=== PATIENT | female | born 1960 | race Caucasian/White ===

== ENCOUNTER → 2019-05-03 05:42 | Day surgery (SDC) | payer BC ==
--- NOTE | 2019-04-27 17:04 | HP ---
Amended report to enter cosigning physician. HISTORY AND PHYSICAL: DATE OF ADMISSION/SURGERY: 05/03/19 DATE OF OFFICE VISIT: 04/27/19 SURGEON: Meka Montiel MD* (dictated by MYLES Yen). PROCEDURE: Left knee arthroscopy with partial meniscectomy, possible chondroplasty, possible synovectomy, and possible plica excision. CHIEF COMPLAINT: Left knee pain. HISTORY OF PRESENT ILLNESS: Ms. Best is a 58-year-old female with complaints of left knee pain. An MRI confirms a meniscus tear. She has elected to proceed with a left knee arthroscopy. PAST MEDICAL HISTORY: Hypertension and high cholesterol. PAST SURGICAL HISTORY: Tonsillectomy and vaginal polyp removal x2. CURRENT MEDICATIONS: 1. Hydrochlorothiazide 12.5 mg a day. 2. Loratadine as needed. 3. Ibuprofen as needed. ALLERGIES: To LATEX and ADHESIVES. FAMILY HISTORY: Diabetes, stroke, coronary artery disease, and cancer. SOCIAL HISTORY: She is a 58-year-old female. She lives alone. She does not smoke or use drugs. REVIEW OF SYSTEMS: A complete 14-point review of systems was reviewed with the patient. It was all negative or noncontributory. She denies history of DVT, PE , hepatitis, HIV, or anesthesia problems. PHYSICAL EXAMINATION GENERAL: She is well developed, well nourished, in no acute distress. VITAL SIGNS: She stands 69 inches tall, weighs 298 pounds. Her blood pressure is 139/77, her heart rate is 76. HEENT: Normocephalic, atraumatic. NECK: Supple. No palpable lymph nodes. PULMONARY: The lungs are clear to auscultation bilaterally. CARDIO: Regular rate and rhythm. Strong S1, S2. ABDOMEN: Soft, nontender, nondistended. NEUROLOGICAL: She is alert and oriented x3. MUSCULOSKELETAL: Left lower extremity: The skin is intact. There are no open wounds or abrasions. There is a moderate effusion of the left knee joint, some tenderness over the medial joint line. Range of motion is 0 to 125 degrees of flexion. Positive Apley's, positive Joe's. She is able to dorsiflex and plantarflex and has a 2+ dorsalis pedis pulse. ASSESSMENT AND PLAN: Ms. Best is a 58-year-old female with complaints of left knee pain and MRI shows a tear of the medial meniscus. She has elected to proceed with a left knee arthroscopy with partial meniscectomy, possible chondroplasty, possible synovectomy, possible plica excision. The surgery is scheduled for 05/03/[address] Montiel discussed the risks and benefits of the surgery at today's visit and all of her questions were answered. She will follow up with Dr. Montiel 2 weeks after the surgery. MYLES YEN [id number]/[facility] #: [id number] [facility]
[~2019-05-03 05:42] MED LIST: Acetaminophen TAB* 325 MG PO PRN; Buffered Lidocaine 1% SYRIN* 1 ML/SYRINGE INTRADERM ONE; Bupivacaine 0.5%* 50 ML VIAL ONE; Dexamethasone IV* 4 MG/ML 1 ML (4 MG) ONE; DiMENhydriNATE IV* 50 MG/ML VIAL IV PUSH PRN; EPHEDrine (Pressors)* 50 MG/ML VIAL ONE; EPINEPHRINE 1 MG/ML 1 ML VIAL ONE; Ketorolac INJ* 30 MG/ML 1 ML VIAL ONE; Lactated Ringers 1000 ML Bag* 1,000 ML IV SCH; Lidocaine 2% PF * 5 ML VIAL ONE; Metoclopramide IV* 5 MG/ML 2 ML VIAL ONE; Midazolam* 1 MG/ML 2 ML VIAL (2 MG) ONE; Naloxone* 0.4 MG/ML 1 ML VIAL IV PRN; Ondansetron INJ* 2 MG/ML VIAL ONE; Propofol* 10 MG/ML 20 ML BTL ONE; ROPIVACAINE 5 MG/ML 30 ML BTL (0.5%) ONE; Succinylcholine* 20 MG/ML 10 ML VIAL ONE; ceFAZolin 1 GM in Dextrose (*) 1 GM/50 ML BAG IVPB ONE; ceFAZolin 2 GM PREMIX in ORs 2 GM/50 ML BAG ONE; fentaNYL* 50 MCG/ML 2 ML VIAL (100 MCG VIAL) IV PRN; fentaNYL* 50 MCG/ML 2 ML VIAL (100 MCG VIAL) ONE; methylPREDNISolone ACETATE 80* 80 MG/ML 1 ML VIAL ONE; oxyCODONE TAB* 5 MG TAB ONE; oxyCODONE TAB* 5 MG TAB PO PRN
[2019-05-03 09:45] VITALS: BP 151/81
--- NOTE | 2019-05-04 00:15 | OP ---
DATE OF SURGERY: 05/03/19 [facility] DATE OF : 58 ATTENDING SURGEON: Meka Montiel MD CROWN ATTACHER: MYLES Min. Mr. Owusu did help throughout the procedure with preparation of the leg, wound retractions, manipulation of the knee, and wound closure. ANESTHESIOLOGIST: Dr. Cueto. ANESTHESIA: General. PRE-OP DIAGNOSIS: Left knee medial meniscal tear, [id number] osteoarthritis. POST-OP DIAGNOSIS: Left knee medial meniscal tear, [id number] osteoarthritis in the medial and patellofemoral compartments. OPERATIVE PROCEDURE: Left knee arthroscopy with partial medial meniscectomy and patellofemoral chondroplasty. COMPLICATIONS: None. ESTIMATED BLOOD LOSS: Less than 25 cc. BRIEF HISTORY/INDICATION: Ms. Best is a 58-year-old female who developed acute increased swelling with mechanical symptoms. MRI did confirm a medial meniscal tear. She failed conservative treatment and elected to undergo left knee arthroscopy with partial meniscectomy. She understood the risks and benefits of the procedure. These risks included, but were not limited to, bleeding, infection, damage to near by structures, continued pain, need for further surgery, re-tear of the meniscus, progression of arthritis, anesthesia complications, stroke, heart attack, blood clot, and . She wishes to proceed. INTRAOPERATIVE FINDINGS: Intraoperatively, the patient was noted to have a radial- type tear with a longitudinal component in the posterior one third of the medial meniscus involving the white- red zone. She had grade 3 and 4 outerbridge cartilage changes in patellofemoral and medial compartments, and exposed subchondral bone in the medial and patellofemoral compartments. DESCRIPTION OF PROCEDURE: Ms. Best was identified in the preanesthesia unit. Her left lower extremity was marked as the correct operative side. Informed consent was signed and placed in the chart. The patient was taken to the operating room and placed under general anesthesia. Her left lower extremity was prepped and draped in the usual sterile fashion. Preop time-out was made to correctly identify the patient, side, and site. Appropriate perioperative antibiotics were given within 1 hour of incision. A 0.5 cm anterolateral portal incision was made with a 10 blade and carried down through the capsule. Trocar was introduced. As soon as the light and water sources were turned on, there was immediate visualization of the suprapatellar pouch. A tour of the knee joint was performed. Suprapatellar pouch showed no obvious abnormality. Medial gutter showed no loose body or plica. The patellofemoral compartment had grade 3 and 4 Outerbridge cartilage changes with exposed subchondral bone and frayed cartilage. This involved the medial and lateral patellar facets. Medial compartment also showed extensive osteoarthritic changes with grade 3 and 4 Outerbridge cartilage changes along the medial femoral condyle. There was exposed subchondral bone along the majority of the medial femoral condyle. There was a radial tear in the posteromedial meniscus with a longitudinal component. This involved the white- red zone. ACL and PCL appeared to be intact. The knee was placed in a figure- of-four position. Lateral compartment showed no significant degenerative changes or meniscal tear. Under direct visualization, a medial portal incision was made with 10 blade. The probe was introduced. A second tour of the knee joint was performed. No additional findings were noted. Radiofrequency ablation wand and shaver were used to perform patellofemoral chondroplasty. The frayed cartilage was conservatively removed. Any cartilage flaps were smoothed with the radiofrequency ablation wand. Next, a straight biter and shaver were used to perform partial medial meniscectomy. The torn meniscus was carefully excised. This was mainly in the white-red zone in the posterior one-third of the medial meniscus. Further probing of the medial meniscus showed no additional tears. The knee was copiously irrigated with sterile saline. All instruments were removed. The incisions were closed with 3-0 nylon suture. Intraarticular injection of 80 mg of Depo-Medrol and 6 cc of 0.25% Marcaine was placed in the knee joint. The patient's incisions were covered with Xeroform, 4x4's, and Webril. Damien wrap and cold packs were placed over this. The patient's anesthesia was reversed without difficulty. She was taken to the PACU in stable condition. Intended weightbearing will be weightbearing as tolerated. Intended DVT prophylaxis will be aspirin. [id number]/[facility] #: [id number] ASH
== END | disposition home or self-care (01) ==
LOC: OR 05:42
PROVIDERS: ATTEND Orthopaedic Surgery Adult Reconstructive Orthopaedic Surgery
DX: S83.242A Other tear of medial meniscus, current injury, left knee, initial encounter (principal); M17.12 Unilateral primary osteoarthritis, left knee; I10 Essential (primary) hypertension; R00.2 Palpitations; K21.9 Gastro-esophageal reflux disease without esophagitis; X58.XXXA Exposure to other specified factors, initial encounter; Y92.9 Unspecified place or not applicable
CPT/HCPCS: A9270-GY; J0330; J0690; J1040; J1100; J1885; J2250; J2405; J2704; J2765; J2795; J3010; J3490